=== PATIENT | female | born 1970 | race Caucasian/White ===

== ENCOUNTER 2018-05-14 11:47 | Emergency (ER) | payer BC ==
[2018-05-14 12:20] LABS: ABSOLUTE EOSINOPHILS # (AUTO) 0.1 10^3/uL (0.0-0.6); ABSOLUTE LYMPHOCYTES (AUTO) 0.5 10^3/uL (0.5-4.7); ABSOLUTE MONOCYTES (AUTO) 0.3 10^3/uL (0.1-1.4); ABSOLUTE NEUT (AUTO) 5.9 10^3/uL (1.7-8.2); BASOPHILS % (AUTO) 0.7 % (0-2); EOSINOPHILS % (AUTO) 0.9 % (0-6); HEMOGLOBIN 10.7 g/dL (12.0-15.5); LYMPHOCYTES % (AUTO) 7.2 % (13-45); MEAN CORPUSCULAR HEMOGLOBIN 31.5 pg (27.0-33.4); MEAN CORPUSCULAR HGB CONC 34.6 g/dL (32.0-36.0); MEAN CORPUSCULAR VOLUME 91 fl (80-97); MONOCYTES % (AUTO) 4.4 % (3-13); PLATELET COUNT 168 10^3/uL (150-450); RED CELL DISTRIBUTION WIDTH 14.1 % (11.5-14.0); SEGMENTED NEUTROPHILS % (AUTO) 86.8 % (42-78); TOTAL CELLS COUNTED % (AUTO) 100 %; WHITE BLOOD COUNT 6.8 10^3/uL (4.0-10.5)
[2018-05-14] MEDS ORDERED: NORMAL SALINE 1000 ML 1,000 ML IV ONE (12:32)
[2018-05-14] MEDS ORDERED: MORPHINE SULFATE 10 MG/ML INJ IV ONE ×2 (12:32→13:42)
--- NOTE | 2018-05-14 12:32 | ER Document Report ---
ED General - General Chief Complaint: Abdominal Pain Stated Complaint: ABDOMINAL PAIN Time Seen by Provider: 05/14/18 11:53 TRAVEL OUTSIDE OF THE [place] IN LAST 30 DAYS: No - HPI Notes: Patient is a 47-year-old female that presents to the emergency department for chief complaint of abdominal pain. Patient reports upper abdominal pain that began today. She states it started gradually and has since increased in intensity. She states it has been constant since onset with periods of exacerbation. She denies any known aggravating factors. She denies any relieving factors. She states she had diarrhea for the last 2 days but that has stopped today. She does report associated nausea and vomiting today. She denies any black or bloody stools or hematemesis. Patient has a history of gastric bypass surgery in 2017 and denies any major complications since surgery. Past Medical History: Negative Past Surgical History: Cholecystectomy, gastric bypass, hiatal hernia repair, umbilical hernia repair Social History: Occasional tobacco, occasional alcohol, denies drug use Family History: Reviewed and noncontributory for presenting illness Allergies: Reviewed, see documented allergy list. REVIEW OF SYSTEMS: CONSTITUTIONAL : No fever No chills No diaphoresis No recent illness EENT: No vision changes No congestion No sore throat CARDIOVASCULAR: No chest pain No palpitations RESPIRATORY: No shortness of breath No cough No difficulty breathing GASTROINTESTINAL: abdominal pain nausea vomiting diarrhea GENITOURINARY: No dysuria No hematuria No difficulty urinating MUSCULOSKELETAL: No back pain No leg pain No arm pain SKIN: No rashes No lesions LYMPHATIC: No swollen, enlarged glands. NEUROLOGICAL: No lightheadedness No headache No weakness No paresthesias PSYCHIATRIC: No anxiety No depression PHYSICAL EXAMINATION: Vital signs reviewed, nursing noted reviewed. GENERAL: Appears uncomfortable, well-nourished and in mild acute distress. HEAD: Atraumatic, normocephalic. EYES: Eyes appear normal, extraocular movements intact, sclera anicteric, conjunctiva are normal. ENT: nares patent, oropharynx clear without exudates. Moist mucous membranes. NECK: Normal range of motion, supple without lymphadenopathy LUNGS: Breath sounds clear to auscultation bilaterally and equal. No wheezes rales or rhonchi. HEART: Regular rate and rhythm without murmurs ABDOMEN: Soft, epigastric and right upper quadrant tenderness, normoactive bowel sounds. No rebound, guarding, or rigidity. No masses appreciated. EXTREMITIES: Nontender, good range of motion, no pitting or edema. NEUROLOGICAL: No focal neurological deficits. Moves all extremities spontaneously Motor and sensory grossly intact on exam. PSYCH: Normal mood, normal affect. SKIN: Warm, Dry, normal turgor, no rashes or lesions noted on exposed skin - Related Data Allergies/Adverse Reactions: bee venom protein (honey bee) Allergy (Verified 05/14/18 12:19) Sulfa (Sulfonamide Antibiotics) Allergy (Verified 05/14/18 12:19) azithromycin [From Zithromax] Adverse Reaction (Verified 05/14/18 12:19) Flu Vaccine Allergy (Uncoded 05/14/18 12:19) Past Medical History - Social History Smoking Status: Current Some Day Smoker Frequency of alcohol use: Rare Drug Abuse: None Family History: Reviewed & Not Pertinent Patient has suicidal ideation: No Patient has homicidal ideation: No Renal/ Medical History: Denies: Hx Peritoneal Dialysis Musculoskeletal Medical History: Reports Hx Arthritis Past Surgical History: Reports: Hx Abdominal Surgery - gastric bypass, Hx Breast Surgery - 2 cysts removed from right breast, Hx Cholecystectomy, Hx Hysterect steffi, Hx Orthopedic Surgery - left knee x 2/right knee x 2, left wrist, left shoulder x 2, right shoulder, Hx Tubal Ligation Physical Exam - Vital signs Vitals: Temp Pulse Resp BP Pulse Ox 98 F 74 16 100/59 L 98 05/14/18 11:51 05/14/18 11:51 05/14/18 11:51 05/14/18 11:51 05/14/18 11:51 Course - Re-evaluation Re-evalutation: 05/14/18 12:31 Vitals reviewed. Nursing notes reviewed. Patient reports symptom medic improvement after antiemetics and fluids started by EMS prior to arrival. Patient will be ordered another liter bolus and morphine for further symptomatic management. 05/14/18 13:59 Patient continued to have pain after morphine and was ordered a second dose. I did offer her a GI cocktail which she has refused. Patient's lab work is unremarkable. She has no significant elevation of liver enzymes. Her CT scan shows some nonspecific periportal edema which I did discuss with Dr. Kevin. He feels this is a nonspecific finding and does not require further workup given her normal hepatic function. Patient was encouraged to follow with her surgeon who performed the gastric bypass. She has had gastric ulcers in the past which is a possibility. She is on pantoprazole which she will continue to take. I did recommend sucralfate which she does not want because it makes her vomit. I also recommended Tums which she also does not want to take. Patient was counseled on dietary changes and discharged in stable condition Laboratory 05/14/18 05/14/18 05/14/18 12:06 12:06 12:17 WBC 6.8 RBC 3.40 L Hgb 10.7 L Hct 31.0 L MCV 91 MCH 31.5 MCHC 34.6 RDW 14.1 H Plt Count 168 Seg Neutrophils % 86.8 H Lymphocytes % 7.2 L Monocytes % 4.4 Eosinophils % 0.9 Basophils % 0.7 Absolute Neutrophils 5.9 Absolute Lymphocytes 0.5 Absolute Monocytes 0.3 Absolute Eosinophils 0.1 Absolute Basophils 0.0 Sodium 139.8 Potassium 3.8 Chloride 112 H Carbon Dioxide 25 Anion Gap 3 L BUN 13 Creatinine 0.60 Est GFR ( Amer) > 60 Est GFR (Non-Af Amer) > 60 Glucose 86 Calcium 8.1 L Total Bilirubin 0.6 Direct Bilirubin 0.3 Neonat Total Bilirubin Not Reportable Neonat Direct Bilirubin Not Reportable Neonat Indirect Bili Not Reportable AST 52 H ALT 51 Alkaline Phosphatase 55 Total Protein 5.3 L Albumin 3.3 L Lipase 92.6 Urine Color YELLOW Urine Appearance SLIGHTLY-CLOUDY Urine pH 6.0 Ur Specific Sheldon 1.024 Urine Protein NEGATIVE Urine Glucose (UA) NEGATIVE Urine Ketones TRACE H Urine Blood NEGATIVE Urine Nitrite NEGATIVE Urine Bilirubin NEGATIVE Urine Urobilinogen 4.0 H Ur Leukocyte Esterase NEGATIVE Urine WBC (Auto) 0 Urine RBC (Auto) 4 Urine Bacteria (Auto) TRACE Squamous Epi Cells Auto 5 Urine Mucus (Auto) FEW Urine Ascorbic Acid NEGATIVE Abdomen/Pelvis CT 05/14/18 12:26 IMPRESSION: Nonspecific periportal edema. Recommend correlation with LFTs. Prior cholecystectomy. Prior gastric bypass. No other evidence of acute intra-abdominal/pelvic process. - Vital Signs Vital signs: Temp Pulse Resp BP Pulse Ox 98 F 74 16 100/59 L 98 05/14/18 11:51 05/14/18 11:51 05/14/18 11:51 05/14/18 11:51 05/14/18 11:51 - Laboratory Result Diagrams: 05/14/18 12:06 05/14/18 12:06 Laboratory results interpreted by me: 05/14/18 05/14/18 05/14/18 12:06 12:06 12:17 RBC 3.40 L Hgb 10.7 L Hct 31.0 L RDW 14.1 H Seg Neutrophils % 86.8 H Lymphocytes % 7.2 L Chloride 112 H Anion Gap 3 L Calcium 8.1 L AST 52 H Total Protein 5.3 L Albumin 3.3 L Urine Ketones TRACE H Urine Urobilinogen 4.0 H Discharge - Discharge Clinical Impression: Abdominal pain Qualifiers: Abdominal location: epigastric Qualified Code(s): R10.13 - Epigastric pain Condition: Stable Disposition: HOME, SELF-CARE Instructions: Abdominal Pain ([facility]) Additional Instructions: Please return to the emergency department if you have any worsening, or concern of your symptoms. Please return to the emergency department if you develop chest pain, difficulty breathing, severe abdominal pain, or ongoing vomiting. Please follow-up with your primary care physician in 2-3 days and any other recommended physicians. If prescribed, take all medications as directed. If you have any questions or concerns do not hesitate to return the emergency department for evaluation. Call your surgeon who performed her gastric bypass surgery for follow-up and possible upper endoscopy to evaluate for gastric ulcer Forms: Return to Work Referrals: SUKHJINDER DAVILA MD [Primary Care Provider] - Follow up as needed
[2018-05-14 12:36] LABS: APPEARANCE,URINE SLIGHTLY-CLOUDY; BILIRUBIN,URINE NEGATIVE (NEGATIVE); COLOR,URINE YELLOW; GLUCOSE, URINE NEGATIVE (NEGATIVE); KETONES,URINE TRACE mg/dL (NEGATIVE); LEUKOCYTE ESTERASE,URINE NEGATIVE (NEGATIVE); NITRITE,URINE NEGATIVE (NEGATIVE); PROTEIN,URINE NEGATIVE (NEGATIVE); URINE SPECIFIC GRAVITY 1.024
[2018-05-14 12:39] LABS: ALANINE AMINOTRANSFERASE 51 U/L (9-52); ALBUMIN 3.3 g/dL (3.5-5.0); ALKALINE PHOSPHATASE 55 U/L (38-126); ASPARTATE AMINO TRANSFERASE 52 U/L (14-36); BILIRUBIN,DIRECT 0.3 mg/dL (0.0-0.4); BILIRUBIN,TOTAL 0.6 mg/dL (0.2-1.3); BLOOD UREA NITROGEN 13 mg/dL (7-20); CALCIUM 8.1 mg/dL (8.4-10.2); GLUCOSE 86 mg/dL (75-110); LIPASE 92.6 U/L (23-300); POTASSIUM 3.8 mmol/L (3.6-5.0); TOTAL PROTEIN 5.3 g/dL (6.3-8.2)
[2018-05-14 12:45] LABS: CARBON DIOXIDE 25 mmol/L (22-30); CHLORIDE 112 mmol/L (98-107); SODIUM 139.8 mmol/L (137-145)
[2018-05-14 12:52] LABS: ANION GAP 3 (5-19)
--- NOTE | 2018-05-14 13:48 | RADIOLOGY REPORT (SQ) ---
EXAM DESCRIPTION: CT ABD/PELVIS WITH IV ONLY COMPLETED DATE/TIME: 05/14/2018 1:17 pm REASON FOR STUDY: epigastric pain COMPARISON: None. TECHNIQUE: CT scan of the abdomen and pelvis performed using helical scanning technique with dynamic intravenous contrast injection. No oral contrast. Images reviewed with lung, soft tissue, and bone windows. Reconstructed coronal and sagittal MPR images reviewed. Delayed images for evaluation of the urinary system also acquired. All images stored on PACS. All CT scanners at this facility use dose modulation, iterative reconstruction, and/or weight based d osing when appropriate to reduce radiation dose to as low as reasonably achievable (ALARA). [facility]: Dose Right [facility]: CareDose [facility]: Dose Right [facility]: Teradose 4D [facility]: [id number] CONTRAST TYPE AND DOSE: contrast/concentration: Isovue mg/ml; Total Contrast Delivered: 80.0 ml; To albert Saline Delivered: 68.0 ml RENAL FUNCTION: BUN 13, creatinine 0.6 RADIATION DOSE: CT Rad equipment meets quality standard of care and radiation dose reduction techniq ues were employed. CTDIvol: 6.5 - 8.9 mGy. DLP: 857 mGy-cm.. LIMITATIONS: None. FINDINGS: LOWER CHEST: No significant findings. No nodules or infiltrates. LIVER: Left hepatic lobe cyst. There is nonspecific periportal edema. SPLEEN: Normal size. No focal lesions. PANCREAS: No masses. No significant calcifications. No adjacent inflammation or peripancreatic fluid collections. Pancreatic duct not dilated. GALLBLADDER: Surgically absent. ADRENAL GLANDS: No significant masses or asymmetry. RIGHT KIDNEY AND URETER: No solid masses. No significant calcifications. No hydronephrosis or hyd roureter. LEFT KIDNEY AND URETER: No solid masses. No significant calcifications. No hydronephrosis or hydr oureter. AORTA AND VESSELS: No aneurysm. No dissection. Renal arteries, SMA, celiac without stenosis. RETROPERITONEUM: No retroperitoneal adenopathy, hemorrhage or masses. BOWEL AND PERITONEAL CAVITY: Evidence of prior gastric bypass. No evidence of intestinal obstruction or focal bowel wall thickening. APPENDIX: Not visualized. PELVIS: Prior hysterectomy. ABDOMINAL WALL: No masses. No hernias. BONES: No significant or acute findings. OTHER: No other significant finding. IMPRESSION: Nonspecific periportal edema. Recommend correlation with LFTs. Prior cholecystectomy. Prior gastric bypass. No other evidence of acute intra-abdominal/pelvic process. TECHNICAL DOCUMENTATION: JOB ID: [id number] Quality ID # [id number]: Final reports with documentation of one or more dose reduction techniques (e.g., Au tomated exposure control, adjustment of the mA and/or kV according to patient size, use of iterative reconstruction technique) 2010 [employer]- All Rights Reserved Reading location - IP/workstation name: [email or web address]
[2018-05-14 14:20] VITALS: BP 106/61
== END 2018-05-14 14:25 | disposition home or self-care (01) ==
LOC: ER 11:47
DX: R10.13 Epigastric pain (principal); R10.816 Epigastric abdominal tenderness; R10.811 Right upper quadrant abdominal tenderness; R11.2 Nausea with vomiting, unspecified; R19.7 Diarrhea, unspecified; R60.9 Edema, unspecified; F17.200 Nicotine dependence, unspecified, uncomplicated; Z98.84 Bariatric surgery status; Z90.49 Acquired absence of other specified parts of digestive tract; Z91.030 Bee allergy status; Z88.2 Allergy status to sulfonamides; Z88.7 Allergy status to serum and vaccine; Z79.899 Other long term (current) drug therapy
CPT/HCPCS: 96376; 99284; 96361; 96374; 36415; 83690; 85025; 80053; 81001; 74177; J2270; J7030

== ENCOUNTER 2018-08-20 12:02 | Emergency (ER) | payer BC ==
--- NOTE | 2018-08-20 12:54 | ER Document Report ---
ED Medical Screen (RME) - General Chief Complaint: Head Injury Stated Complaint: FALL/HEAD INJURY Time Seen by Provider: 08/20/18 12:40 Primary Care Provider: SUKHJINDER DAVILA MD [Primary Care Provider] - Follow up as needed Mode of Arrival: Ambulatory Information source: Patient Notes: Patient is a 48-year-old female presented to the emergency department chief com plaint of head injury, facial pain, confusion, dizziness, blurred vision and nausea. Patient reports she fell yesterday striking the front of her face onto a hard surface on the ground. Patient reports symptoms have continued to worsen since that time. She denies any loss of consciousness or vomiting. Exam: Abrasion noted to forehead, swelling noted across the bridge of the nose. Patient alert, oriented and answering all questions appropriately. I have greeted and performed a rapid initial assessment of this patient. A comprehensive ED assessment and evaluation of the patient, analysis of test results and completion of the medical decision making process will be conducted by additional ED providers. I have specifically instructed the patient or family members with the patient to immediately return to any nursing staff should anything change in the patient's condition or with their chief complaint. This medical record was dictated with voice recognizing software. There may be grammatical, syntax errors that are unintended. TRAVEL OUTSIDE OF THE [place] IN LAST 30 DAYS: No - Related Data Allergies/Adverse Reactions: bee venom protein (honey bee) Allergy (Verified 08/20/18 12:14) Sulfa (Sulfonamide Antibiotics) Allergy (Verified 08/20/18 12:14) azithromycin [From Zithromax] Adverse Reaction (Verified 08/20/18 12:14) Flu Vaccine Allergy (Uncoded 08/20/18 12:14) Past Medical History - Social History Chew tobacco use (# tins/day): No Frequency of alcohol use: Rare Drug Abuse: None Renal/ Medical History: Denies: Hx Peritoneal Dialysis GI Medical History: Reports: Hx Ulcer Musculoskeltal Medical History: Reports Hx Arthritis Past Surgical History: Reports: Hx Abdominal Surgery - gastric bypass, Hx Breast Surgery - 2 cysts removed from right breast, Hx Cholecystectomy, Hx Hysterectomy, Hx Orthopedic Surgery - left knee x 2/right knee x 2, left wrist, left shoulder x 2, right shoulder, Hx Tubal Ligation Physical Exam - Vital signs Vitals: Temp Pulse Resp BP Pulse Ox 98 F 83 16 115/52 L 97 08/20/18 12:06 08/20/18 12:06 08/20/18 12:06 08/20/18 12:06 08/20/18 12:06 Course - Vital Signs Vital signs: Temp Pulse Resp BP Pulse Ox 97.5 F 70 20 126/74 H 96 08/20/18 12:11 08/20/18 12:11 08/20/18 12:11 08/20/18 12:11 08/20/18 12:11 Doctor's Discharge - Discharge Referrals: SUKHJINDER DAVILA MD [Primary Care Provider] - Follow up as needed
--- NOTE | 2018-08-20 13:10 | RADIOLOGY REPORT (SQ) ---
EXAM DESCRIPTION: CT HEAD WITHOUT COMPLETED DATE/TIME: 08/20/2018 12:58 pm REASON FOR STUDY: fall, facial pain, confusion COMPARISON: None. TECHNIQUE: Axial images acquired through the brain without intravenous contrast. Images reviewed wi th bone, brain and subdural windows. Additional sagittal and coronal reconstructions were generated. Images stored on PACS. All CT scanners at this facility use dose modulation, iterative reconstruction, and/or weight based d osing when appropriate to reduce radiation dose to as low as reasonably achievable (ALARA). [facility]: Dose Right [facility]: CareDose [facility]: Dose Right [facility]: Teradose 4D [facility]: AVST RADIATION DOSE: CT Rad equipment meets quality standard of care and radiation dose reduction techniq ues were employed. CTDIvol: 53.2 mGy. DLP: 1044 mGy-cm. mGy. LIMITATIONS: None. FINDINGS: VENTRICLES: Normal size and contour. CEREBRUM: No masses. No hemorrhage. No midline shift. No evidence for acute infarction. Normal gra y/white matter differentiation. No areas of low density in the white matter. CEREBELLUM: No masses. No hemorrhage. No alteration of density. No evidence for acute infarction. EXTRAAXIAL SPACES: Incidentally noted 5 mm finding on gland cysts. No fluid collections. No masses. ORBITS AND GLOBE: No intra- or extraconal masses. Normal contour of globe without masses. CALVARIUM: No fracture. PARANASAL SINUSES: No fluid or mucosal thickening. SOFT TISSUES: No mass or hematoma. OTHER: No other significant finding. IMPRESSION: No evidence of acute intracranial abnormality. EVIDENCE OF ACUTE STROKE: NO. COMMENT: Quality ID # [id number]: Final reports with documentation of one or more dose reduction techniques (e.g., Automated exposure control, adjustment of the mA and/or kV according to patient size, use of iterative reconstruction technique) TECHNICAL DOCUMENTATION: JOB ID: [id number] [employer]- All Rights Reserved Reading location - IP/workstation name: [email or web address]
[2018-08-20] MEDS ORDERED: ACETAMINOPHEN 325 MG TABLET PO ONE (14:33)
--- NOTE | 2018-08-20 15:02 | RADIOLOGY REPORT (SQ) ---
EXAM DESCRIPTION: CT CERVICAL SPINE WITHOUT COMPLETED DATE/TIME: 08/20/2018 2:47 pm REASON FOR STUDY: fall/trauma COMPARISON: None. TECHNIQUE: Axial images acquired through the cervical spine without intravenous contrast. Images re viewed with lung, soft tissue and bone windows. Reconstructed coronal and sagittal MPR images review ed. Images stored on PACS. All CT scanners at this facility use dose modulation, iterative reconstruction, and/or weight based d osing when appropriate to reduce radiation dose to as low as reasonably achievable (ALARA). [facility]: Dose Right [facility]: CareDose [facility]: Dose Right [facility]: Teradose 4D [facility]: Smart CS [employer] RADIATION DOSE: CT Rad equipment meets quality standard of care and radiation dose reduction techniq ues were employed. CTDIvol: 17.0 mGy. DLP: 380 mGy-cm. mGy. LIMITATIONS: None. FINDINGS: ALIGNMENT: Anatomic. MINERALIZATION: Normal. VERTEBRAL BODIES: No fractures or dislocation. DISCS: No significant disc disease. FACETS, LATERAL MASSES, POSTERIOR ELEMENTS: No fractures. No dislocation. No acute findings. HARDWARE: None in the spine. VISUALIZED RIBS: No fractures. LUNG APICES AND SOFT TISSUES: No significant or acute findings. OTHER: No other significant finding. IMPRESSION: NO ACUTE OR SIGNIFICANT FINDINGS IN THE CERVICAL SPINE. TECHNICAL DOCUMENTATION: JOB ID: [id number] Quality ID # [id number]: Final reports with documentation of one or more dose reduction techniques (e.g., Au tomated exposure control, adjustment of the mA and/or kV according to patient size, use of iterative reconstruction technique) 2010 [employer]- All Rights Reserved Reading location - IP/workstation name: [email or web address]
[2018-08-20] MEDS ORDERED: HYDROCODONE/ACETAMINOPHEN 5-325 MG (6 TAB/ER DISP) PO PRN (16:02)
[2018-08-20] MEDS ORDERED: DIPH/PERTUSS(ACELL)/TETANUS VAC/PF 0.5 ML SYR (>=10YO) IM ONE (16:02)
--- NOTE | 2018-08-20 16:02 | ER Document Report ---
ED Head/Face/Scalp Injury - General Chief Complaint: Head Injury Stated Complaint: FALL/HEAD INJURY Time Seen by Provider: 08/20/18 12:40 Primary Care Provider: SUKHJINDER DAVILA MD [Primary Care Provider] - Follow up as needed Mode of Arrival: Ambulatory Notes: RME provider note: Patient is a 48-year-old female presented to the emergency department chief complaint of head injury, facial pain, confusion, dizziness, blurred vision and nausea. Patient reports she fell yesterday striking the front of her face onto a hard surface on the ground. Patient reports symptoms have continued to worsen since that time. She denies any loss of consciousness or vomiting. My HPI: Patient is also complaining of generalized cervical spine tenderness upon my evaluation. States she did take Tylenol around 630 this morning. Patient drove herself to the emergency room. TRAVEL OUTSIDE OF THE [place] IN LAST 30 DAYS: No - Related Data Allergies/Adverse Reactions: bee venom protein (honey bee) Allergy (Verified 08/20/18 12:14) Sulfa (Sulfonamide Antibiotics) Allergy (Verified 08/20/18 12:14) azithromycin [From Zithromax] Adverse Reaction (Verified 08/20/18 12:14) Flu Vaccine Allergy (Uncoded 08/20/18 12:14) Past Medical History - General Information source: Patient - Social History Smoking Status: Former Smoker Chew tobacco use (# tins/day): No Frequency of alcohol use: Rare Drug Abuse: None Family History: Reviewed & Not Pertinent Patient has suicidal ideation: No Patient has homicidal ideation: No Renal/ Medical History: Denies: Hx Peritoneal Dialysis GI Medical History: Reports: Hx Ulcer Musculoskeletal Medical History: Reports Hx Arthritis Past Surgical History: Reports: Hx Abdominal Surgery - gastric bypass, Hx Breast Surgery - 2 cysts removed from right breast, Hx Cholecystectomy, Hx Hysterectomy, Hx Orthopedic Surgery - left knee x 2/right knee x 2, left wrist, left shoulder x 2, right shoulder, Hx Tubal Ligation Review of Systems - Review of Systems Constitutional: denies: Weakness EENT: Nose pain. denies: Nose discharge, Dental problem Cardiovascular: No symptoms reported Respiratory: No symptoms reported Gastrointestinal: No symptoms reported Genitourinary: No symptoms reported Female Genitourinary: No symptoms reported Musculoskeletal: No symptoms reported Skin: See HPI Hematologic/Lymphatic: No symptoms reported Neurological/Psychological: See HPI Physical Exam - Vital signs Vitals: Temp Pulse Resp BP Pulse Ox 98 F 83 16 115/52 L 97 08/20/18 12:06 08/20/18 12:06 08/20/18 12:06 08/20/18 12:06 08/20/18 12:06 - Notes Notes: GENERAL: Alert, interacts well. No acute distress. HEAD: Normocephalic, superficial abrasion noted medial forehead with surrounding ecchymosis. EYES: Pupils equal, round, and reactive to light. Extraocular movements intact. ENT: Oral mucosa moist, tongue midline. Nares patent, no nasal septal hematoma, swelling noted bridge of nose with minor ecchymosis. TM's intact, no hemotympanum noted bilaterally. NECK: Full range of motion. Supple. Trachea midline. Generalized tenderness noted cervical spine, offered c-collar, patient declined. LUNGS: Clear to auscultation bilaterally, no wheezes, rales, or rhonchi. No respiratory distress. HEART: Regular rate and rhythm. No murmur ABDOMEN: Soft, non-tender. Non-distended. Bowel sounds present in all 4 quadrants. EXTREMITIES: Moves all 4 extremities spontaneously. No edema, normal radial and dorsalis pedis pulses bilaterally. No cyanosis. 5 out of 5 strength all 4 extremities. BACK: no thoracic, lumbar midline tenderness. No saddle anesthesia, normal distal neurovascular exam. NEUROLOGICAL: Alert and oriented x3. Normal speech. cranial nerves II through XII grossly intact PSYCH: Normal affect, normal mood. SKIN: Warm, dry, normal turgor. Course - Re-evaluation Re-evalutation: Head CT 08/20/18 12:40 IMPRESSION: No evidence of acute intracranial abnormality. EVIDENCE OF ACUTE STROKE: NO. Cervical Spine CT 08/20/18 14:33 IMPRESSION: NO ACUTE OR SIGNIFICANT FINDINGS IN THE CERVICAL SPINE. Discussed case with the radiologist, he placed an addendum to state that the patient had no nasal bone fractures or zygomatic fractures as this is where her pain was mostly located. Discussed this with patient at bedside. discussed postconcussive syndrome with patient at bedside. At this time will discharge with return precautions and follow-up recommendation s. Verbal discharge instructions given a the bedside and opportunity for questions given. Medication warnings reviewed. Patient is in agreement with this plan and has verbalized understanding of return precautions and the need for primary care follow-up in the next 24-72 hours. This medical record was dictated with voice recognizing software. There may be grammatical, syntax errors that are unintended. - Vital Signs Vital signs: Temp Pulse Resp BP Pulse Ox 98.1 F 52 L 18 97/58 L 96 08/20/18 17:25 08/20/18 17:25 08/20/18 17:25 08/20/18 17:25 08/20/18 17:25 Discharge - Discharge Clinical Impression: Abrasion Head injury Qualifiers: Encounter type: initial encounter Qualified Code(s): S09.90XA - Unspecified injury of head, initial encounter Condition: Stable Disposition: HOME, SELF-CARE Instructions: Abrasions of the Face ([facility]), Head Injury Precautions ([facility]), Post- Concussion Syndrome ([facility]) Additional Instructions: As we discussed you have been seen and treated in the emergency department for a head injury. Your CT results show no signs of abnormalities to your brain, ce rvical spine, or your facial bones. Unfortunately you may be more sore tomorrow than you are today. Please take [id number] analgesics continue to apply ice to the swollen area 20 minutes on, 20 minutes off. Please follow-up with your primary care provider in the next 24 to 48 hours. Please return to the emergency room for any concerns. Forms: Return to Work Referrals: SUKHJINDER DAVILA MD [Primary Care Provider] - Follow up as needed
[2018-08-20 17:27] VITALS: BP 97/58
== END 2018-08-20 17:27 | disposition home or self-care (01) ==
LOC: ER 12:02
DX: S09.90XA Unspecified injury of head, initial encounter (principal); R42 Dizziness and giddiness; H53.8 Other visual disturbances; R11.0 Nausea; W18.30XA Fall on same level, unspecified, initial encounter; Z88.2 Allergy status to sulfonamides; Z88.3 Allergy status to other anti-infective agents; Z98.84 Bariatric surgery status; Z23 Encounter for immunization
CPT/HCPCS: 70450; 72125; 90471; 90715; 99283

== ENCOUNTER 2019-06-14 16:19 | Emergency (ER) | payer BC, OTHER ==
[2019-06-14] MEDS ORDERED: ONDANSETRON HCL INJ/PF 4 MG/2 ML SDV IV ONE (16:35)
[2019-06-14] MEDS ORDERED: NORMAL SALINE 1000 ML 1,000 ML IV ONE (16:35)
--- NOTE | 2019-06-14 16:39 | ER Document Report ---
ED Medical Screen (RME) - General Chief Complaint: Head Injury Stated Complaint: FALL/FOREHEAD INJURY Time Seen by Provider: 06/14/19 16:34 Primary Care Provider: SUKHJINDER DAVILA MD [Primary Care Provider] - Follow up as needed Mode of Arrival: Ambulatory Information source: Patient Notes: 49-year-old female presents to ED for complaint of turning over the in the bed hitting her head on the nightstand then falling into the floor. She states her told her this morning that she had hit her head and falling in the floor last night. She states she remembers hitting her head and then she woke up at 30 this morning wanted to know why her head was hurting so bad. She did have a large knot on her head. She states she has been very nauseated but no vomiting all day and has had blurry vision. I have greeted and performed a rapid initial assessment of this patient. A comprehensive ED assessment and evaluation of the patient, analysis of test results and completion of medical decision making process will be conducted by an additional ED providers. TRAVEL OUTSIDE OF THE [place] IN LAST 30 DAYS: No - Related Data Allergies/Adverse Reactions: bee venom protein (honey bee) Allergy (Verified 06/14/19 16:27) Sulfa (Sulfonamide Antibiotics) Allergy (Verified 06/14/19 16:27) azithromycin [From Zithromax] Adverse Reaction (Verified 06/14/19 16:27) Flu Vaccine Allergy (Uncoded 06/14/19 16:27) Past Medical History - General Information source: Patient - Social History Cigarette use (# per day): Yes - Half-pack a day Chew tobacco use (# tins/day): No Frequency of alcohol use: Occasional Drug Abuse: None Lives with: Family Family history: Reviewed & Not Pertinent - Past Medical History Cardiac Medical History: Reports: None Pulmonary Medical History: Reports: None EENT Medical History: Reports: None Neurological Medical History: Reports: None Endocrine Medical History: Reports: None Renal/ Medical History: Reports: Hx Ectopic Malignancy Medical History: Reports: None GI Medical History: Reports: Hx Ulcer Musculoskeltal Medical History: Reports Hx Arthritis, Reports Hx Musculoskeletal Deformity, Reports Hx Musculoskeletal Trauma Skin Medical History: Reports None Psychiatric Medical History: Reports: None Traumatic Medical History: Reports: None Infectious Medical History: Reports: None Past Surgical History: Reports: Hx Abdominal Surgery, Hx Breast Surgery - 2 cysts removed from right breast, Hx Cholecystectomy, Hx Gastric Bypass Surgery, Hx Gynecologic Surgery - Laparoscopic removal of tube, Hx Hysterectomy, Hx Orthopedic Surgery - left knee x 2/right knee x 2, left wrist, left shoulder x 2, right shoulder, Hx Tubal Ligation Physical Exam - Vital signs Vitals: Temp Pulse Resp BP Pulse Ox 98.8 F 70 16 110/56 L 95 06/14/19 16:23 06/14/19 16:23 06/14/19 16:23 06/14/19 16:23 06/14/19 16:23 Course - Vital Signs Vital signs: Temp Pulse Resp BP Pulse Ox 98 F 70 16 110/56 L 95 06/14/19 16:27 06/14/19 16:23 06/14/19 16:23 06/14/19 16:23 06/14/19 16:23 Doctor's Discharge - Discharge Referrals: SUKHJINDER DAVILA MD [Primary Care Provider] - Follow up as needed
--- NOTE | 2019-06-14 17:03 | ER Document Report ---
ED Head/Face/Scalp Injury - General Chief Complaint: Head Injury Stated Complaint: FALL/FOREHEAD INJURY Time Seen by Provider: 06/14/19 16:34 Primary Care Provider: SUKHJINDER DAVILA MD [Primary Care Provider] - Follow up as needed Mode of Arrival: Ambulatory Information source: Patient Notes: 49 y/o female past medical history significant for Migraines, presents to the emergency room complaining of headache,neck pain. Patient states she fell out of bed between 2 and 3 am hitting her head on night stand. Per patient spouse found her laying on the floor. Patient admits to LOC unknown length. Unsure if she was trying to get up to go the bathroom or if she rolled out of bed No hx of previous head injuries other than child collins injuries from Gymnastics. Took 2 doses of Tylenol earlier today, 1000 mg at 8 am and another 1000 mg around noon without relief. Complains of nausea, no vomiting, Describes headache as throbbing and located to frontal region that rad iates to her neck. Also described neck pain as aching. No other injuries noted. TRAVEL OUTSIDE OF THE [place] IN LAST 30 DAYS: No - HPI Patient complains to provider of: Contusion, Injury, Pain Injury to: Head, Neck - Related Data Allergies/Adverse Reactions: bee venom protein (honey bee) Allergy (Verified 06/14/19 16:27) Sulfa (Sulfonamide Antibiotics) Allergy (Verified 06/14/19 16:27) azithromycin [From Zithromax] Adverse Reaction (Verified 06/14/19 16:27) Flu Vaccine Allergy (Uncoded 06/14/19 16:27) Past Medical History - General Information source: Patient - Social History Smoking Status: Current Every Day Smoker Cigarette use (# per day): Yes - Half-pack a day Chew tobacco use (# tins/day): No Frequency of alcohol use: Occasional Drug Abuse: None Lives with: Family Family History: Reviewed & Not Pertinent Patient has homicidal ideation: No - Past Medical History Cardiac Medical History: Reports: None Pulmonary Medical History: Reports: None EENT Medical History: Reports: None Neurological Medical History: Reports: None Endocrine Medical History: Reports: None Renal/ Medical History: Reports: Hx Ectopic Malignancy Medical History: Reports: None GI Medical History: Reports: Hx Ulcer Musculoskeletal Medical History: Reports Hx Arthritis, Reports Hx Musculoskeletal Deformity, Reports Hx Musculoskeletal Trauma Skin Medical History: Reports None Psychiatric Medical History: Reports: None Traumatic Medical History: Reports: None Infectious Medical History: Reports: None Past Surgical History: Reports: Hx Abdominal Surgery, Hx Breast Surgery - 2 cysts removed from right breast, Hx Cholecystectomy, Hx Gastric Bypass Surgery, Hx Gynecologic Surgery - Laparoscopic removal of tube, Hx Hysterectomy, Hx Orthopedic Surgery - left knee x 2/right knee x 2, left wrist, left shoulder x 2 , right shoulder, Hx Tubal Ligation Review of Systems - Review of Systems Constitutional: No symptoms reported EENT: No symptoms reported Cardiovascular: No symptoms reported Respiratory: No symptoms reported Gastrointestinal: Nausea. denies: Abdominal pain, Vomiting Musculoskeletal: Neck pain Skin: No symptoms reported Neurological/Psychological: Headaches -: Yes All other systems reviewed and negative Physical Exam - Vital signs Vitals: Temp Pulse Resp BP Pulse Ox 98.8 F 70 16 110/56 L 95 06/14/19 16:23 06/14/19 16:23 06/14/19 16:23 06/14/19 16:23 06/14/19 16:23 - General General appearance: Appears well, Alert In distress: Mild - HEENT Head: Tenderness - 1 cm hematoma noted to frontal scalp, no obvious deformity.. No: Atraumatic, Bauer's sign, [place]'s eyes Eyes: Normal Conjunctiva: Normal Extraocular movements intact: Yes Pupils: PERRL Neck: No: Lymphadenopathy - Non tender to cervical spine, tenderness with lateral movement of her neck. No obvious deformity. - Respiratory Respiratory status: No respiratory distress Chest status: Nontender Breath sounds: Normal Chest palpation: Normal - Cardiovascular Rhythm: Regular Heart sounds: Normal auscultation Murmur: No - Extremities General upper extremity: Normal inspection, Nontender, Normal color, Normal ROM, Normal temperature General lower extremity: Normal inspection, Nontender, Normal color, Normal ROM, Normal temperature, Normal weight bearing. No: Abhay's sign - Neurological Neuro grossly intact: Yes Cognition: Normal Orientation: AAOx4 Rohit Coma Scale Eye Opening: Spontaneous [place] Coma Scale Verbal: Oriented Rohit Coma Scale Motor: Obeys Commands Rohit Coma Scale Total: 15 Speech: Normal Motor strength normal: LUE, RUE, LLE, RLE Additional motor exam normals: Equal white metal caster Sensory: Normal - Skin Skin Temperature: Warm Skin Moisture: Dry Skin Color: Normal Skin irregularity: other - 1 cm frontal scalp hematoma tender to palpation Location of irregularity: Scalp Irregularity with: Swelling, Tenderness Course - Re-evaluation Re-evalutation: 06/14/2019 1715 Patient with head injury positive LOC requiring CT Head. 06/14/19 18:14 Patient resting comfortably reviewed all test results with patient, symptoms improved. Counseled on rest, Home for the next 24 hours, Tylenol as needed for pain, Recheck with primary care provider in 2 days. Zofran as needed for nausea, Given strict return to the emergency room guidelines. Return for any new or worsening symptoms. All questions were answered. patient verbalizes understanding and agrees with plan of care. 06/14/19 18:18 - Vital Signs Vital signs: Temp Pulse Resp BP Pulse Ox 98.1 F 63 16 100/54 L 99 06/14/19 18:35 06/14/19 18:35 06/14/19 18:35 06/14/19 18:35 06/14/19 18:35 - Laboratory Result Diagrams: 06/14/19 16:40 06/14/19 16:40 Laboratory results interpreted by me: 06/14/19 06/14/19 16:40 16:40 RBC 3.65 L Hgb 11.7 L Hct 33.7 L Urine Ketones TRACE H Urine Blood MODERATE H Urine Urobilinogen 4.0 H Discharge - Discharge Clinical Impression: Neck pain Head injury Qualifiers: Encounter type: initial encounter Qualified Code(s): S09.90XA - Unspecified injury of head, initial encounter Condition: Stable Disposition: HOME, SELF-CARE Instructions: Concussion ([facility]), Head Injury Precautions ([facility]), Neck Injury (Cervical Strain) ([facility]) Additional Instructions: Home rest for the next 24 hours, recheck with primary care provider in 1 to 2 days, Take Tylenol as needed for pain, Return for any new or worsening symptoms. Forms: Parent Work Note, Return to Work Referrals: SUKHJINDER DAVILA MD [Primary Care Provider] - Follow up as needed
[2019-06-14 17:08] LABS: ABSOLUTE EOSINOPHILS # (AUTO) 0.1 10^3/uL (0.0-0.6); ABSOLUTE LYMPHOCYTES (AUTO) 1.5 10^3/uL (0.5-4.7); ABSOLUTE MONOCYTES (AUTO) 0.3 10^3/uL (0.1-1.4); ABSOLUTE NEUT (AUTO) 2.5 10^3/uL (1.7-8.2); BASOPHILS % (AUTO) 0.4 % (0-2); EOSINOPHILS % (AUTO) 1.7 % (0-6); HEMATOCRIT 33.7 % (36.0-47.0); HEMOGLOBIN 11.7 g/dL (12.0-15.5); MEAN CORPUSCULAR HEMOGLOBIN 32.1 pg (27.0-33.4); MEAN CORPUSCULAR HGB CONC 34.8 g/dL (32.0-36.0); MEAN CORPUSCULAR VOLUME 92 fl (80-97); MONOCYTES % (AUTO) 7.6 % (3-13); PLATELET COUNT 185 10^3/uL (150-450); RED BLOOD COUNT 3.65 10^6/uL (3.72-5.28); SEGMENTED NEUTROPHILS % (AUTO) 56.3 % (42-78); TOTAL CELLS COUNTED % (AUTO) 100 %; WHITE BLOOD COUNT 4.5 10^3/uL (4.0-10.5)
[2019-06-14 17:10] LABS: APPEARANCE,URINE SLIGHTLY-CLOUDY; BILIRUBIN,URINE NEGATIVE (NEGATIVE); COLOR,URINE YELLOW; GLUCOSE, URINE NEGATIVE (NEGATIVE); KETONES,URINE TRACE mg/dL (NEGATIVE); PROTEIN,URINE NEGATIVE (NEGATIVE)
[2019-06-14 17:14] LABS: ALBUMIN 4.1 g/dL (3.5-5.0); ALKALINE PHOSPHATASE 56 U/L (38-126); ASPARTATE AMINO TRANSFERASE 20 U/L (14-36); BILIRUBIN,TOTAL 0.3 mg/dL (0.2-1.3); BLOOD UREA NITROGEN 16 mg/dL (7-20); CALCIUM 8.8 mg/dL (8.4-10.2); CARBON DIOXIDE 27 mmol/L (22-30); GLUCOSE 89 mg/dL (75-110); POTASSIUM 4.3 mmol/L (3.6-5.0); TOTAL PROTEIN 6.3 g/dL (6.3-8.2)
[2019-06-14 17:19] LABS: CHLORIDE 106 mmol/L (98-107)
[2019-06-14 17:20] LABS: ANION GAP 5 (5-19)
[2019-06-14 17:25] LABS: URINE AMPHETAMINES SCREEN NEGATIVE; URINE BARBITURATES SCREEN NEGATIVE; URINE BENZODIAZEPINES SCREEN NEGATIVE; URINE COCAINE SCREEN NEGATIVE; URINE MARIJUANA (THC) SCREEN NEGATIVE; URINE METHADONE SCREEN NEGATIVE; URINE PHENCYCLIDINE SCREEN NEGATIVE
--- NOTE | 2019-06-14 18:07 | RADIOLOGY REPORT (SQ) ---
EXAM DESCRIPTION: CT HEAD WITHOUT IMAGES COMPLETED DATE/TIME: 06/14/2019 4:18 pm REASON FOR STUDY: Head injury, blurred vision, nausea, lloc COMPARISON: 08/20/2018 TECHNIQUE: Axial images acquired through the brain without intravenous contrast. Images reviewed wi th bone, brain and subdural windows. Additional sagittal and coronal reconstructions were generated. Images stored on PACS. All CT scanners at this facility use dose modulation, iterative reconstruction, and/or weight based d osing when appropriate to reduce radiation dose to as low as reasonably achievable (ALARA). [facility]: Dose Right [facility]: CareDose [facility]: Dose Right [facility]: Teradose 4D [facility]: Smart Ifbyphone RADIATION DOSE: CT Rad equipment meets quality standard of care and radiation dose reduction techniq ues were employed. CTDIvol: 53.2 mGy. DLP: 937 mGy-cm. mGy. LIMITATIONS: None. FINDINGS: VENTRICLES: Normal size and contour. CEREBRUM: No masses. No hemorrhage. No midline shift. No evidence for acute infarction. Normal gra y/white matter differentiation. No areas of low density in the white matter. CEREBELLUM: No masses. No hemorrhage. No alteration of density. No evidence for acute infarction. EXTRAAXIAL SPACES: No fluid collections. No masses. ORBITS AND GLOBE: No intra- or extraconal masses. Normal contour of globe without masses. CALVARIUM: No fracture. PARANASAL SINUSES: No fluid or mucosal thickening. SOFT TISSUES: No mass or hematoma. OTHER: No other significant finding. IMPRESSION: NORMAL BRAIN CT WITHOUT CONTRAST. EVIDENCE OF ACUTE STROKE: NO. COMMENT: Quality ID # [id number]: Final reports with documentation of one or more dose reduction techniques (e.g., Automated exposure control, adjustment of the mA and/or kV according to patient size, use of iterative reconstruction technique) TECHNICAL DOCUMENTATION: JOB ID: [id number] 2010 [employer]- All Rights Reserved Reading location - IP/workstation name: [email or web address]
--- NOTE | 2019-06-14 18:09 | RADIOLOGY REPORT (SQ) ---
EXAM DESCRIPTION: CT CERVICAL SPINE WITHOUT IMAGES COMPLETED DATE/TIME: 06/14/2019 4:25 pm REASON FOR STUDY: neck pain/injury COMPARISON: 08/20/2018 TECHNIQUE: Axial images acquired through the cervical spine without intravenous contrast. Images re viewed with lung, soft tissue and bone windows. Reconstructed coronal and sagittal MPR images review ed. Images stored on PACS. All CT scanners at this facility use dose modulation, iterative reconstruction, and/or weight based d osing when appropriate to reduce radiation dose to as low as reasonably achievable (ALARA). [facility]: Dose Right [facility]: CareDose [facility]: Dose Right [facility]: Teradose 4D [facility]: Smart IceRocket RADIATION DOSE: CT Rad equipment meets quality standard of care and radiation dose reduction techniq ues were employed. CTDIvol: 16.0 mGy. DLP: 361 mGy-cm. mGy. LIMITATIONS: None. FINDINGS: ALIGNMENT: Anatomic. MINERALIZATION: Normal. VERTEBRAL BODIES: No acute fracture or cortical disruption. Small marginal osteophytes at the endpla anil. No lytic or blastic bone lesion. DISCS: Degenerative disc disease with loss of intervertebral disc heights. FACETS, LATERAL MASSES, POSTERIOR ELEMENTS: Facet arthropathy most prominent at the left C4-5 level. HARDWARE: None in the spine. VISUALIZED RIBS: No fractures. LUNG APICES AND SOFT TISSUES: No significant or acute findings. OTHER: No other significant finding. IMPRESSION: No acute fracture or dislocation of the cervical spine. Degenerative disc disease, spon dylosis and facet arthropathy. TECHNICAL DOCUMENTATION: JOB ID: [id number] Quality ID # [id number]: Final reports with documentation of one or more dose reduction techniques (e.g., Au tomated exposure control, adjustment of the mA and/or kV according to patient size, use of iterative reconstruction technique) 2010 [employer]- All Rights Reserved Reading location - IP/workstation name: [email or web address]
[2019-06-14] MEDS ORDERED: ONDANSETRON ODT 4 MG TAB (6 TAB/ER DISP) PO PRN (18:19)
[2019-06-14 18:41] VITALS: BP 100/54
== END 2019-06-14 18:45 | disposition home or self-care (01) ==
LOC: ER 16:19
DX: S00.03XA Contusion of scalp, initial encounter (principal); M54.2 Cervicalgia; R51 Headache; W06.XXXA Fall from bed, initial encounter; W22.03XA Walked into furniture, initial encounter; R11.0 Nausea; F17.210 Nicotine dependence, cigarettes, uncomplicated; Z98.84 Bariatric surgery status; Z91.030 Bee allergy status; Z88.2 Allergy status to sulfonamides; Z88.7 Allergy status to serum and vaccine
CPT/HCPCS: 99284; 96361; 96374; 36415; 85025; 80053; 81001; 80307; 70450; 72125; J2405; J7030

== ENCOUNTER → 2020-01-15 | Outpatient (CLI) | payer BC ==
--- NOTE | 2020-01-15 15:04 | RADIOLOGY REPORT (SQ) ---
EXAM DESCRIPTION: CHEST 2 VIEWS IMAGES COMPLETED DATE/TIME: 01/15/2020 2:55 pm REASON FOR STUDY: (R05)COUGH COMPARISON: None. EXAM PARAMETERS: NUMBER OF VIEWS: Two views. TECHNIQUE: PA and lateral views of the chest were obtained. RADIATION DOSE: NA LIMITATIONS: None. FINDINGS: LUNGS AND PLEURA: No consolidation, pleural effusion or pneumothorax. MEDIASTINUM AND HILAR STRUCTURES: No mediastinal or hilar contour abnormality. HEART AND VASCULAR STRUCTURES: The cardiac silhouette and pulmonary vasculature are within normal narayanan its. BONES: No acute findings. HARDWARE: Surgical clips in the right lower quadrant and near the gastroesophageal junction. OTHER: No other finding. IMPRESSION: No acute cardiopulmonary process. TECHNICAL DOCUMENTATION: JOB ID: [id number] 2010 [employer]- All Rights Reserved Reading location - IP/workstation name: [email or web address]
== END ==
LOC: RAD 14:44
PROVIDERS: ATTEND Family Medicine
DX: R05 Cough (principal)
CPT/HCPCS: 71046